=== PATIENT | female | born 1985 | race Caucasian/White ===

== ENCOUNTER 2024-04-10 01:30 | Emergency (ER) | payer MEDICAID ==
[~2024-04-10] VITALS: Ht 160 cm; Wt 62.6 kg
[2024-04-10 01:36] VITALS: BP 131/70; PULSE 102; RESP 16; TEMP 97.8; O2SAT 100
[2024-04-10 02:59] LABS: APPEARANCE,URINE CLEAR (CLEAR); BILIRUBIN,URINE NEGATIVE (NEGATIVE); BLOOD, URINE NEGATIVE (NEGATIVE); COLOR,URINE YELLOW (YELLOW); LEUKOCYTE ESTERASE ,URINE TRACE (NEGATIVE); NITRITE, URINE NEGATIVE (NEGATIVE); PROTEIN,URINE NEGATIVE (NEGATIVE); UGLUCOSE NEGATIVE (NEGATIVE); UROBILINOGEN,URINE 0.2 EU/dL (0.2 - 1)
[2024-04-10 03:16] LABS: RBC,URINE 0-5 /HPF (0-5)
[2024-04-10 03:17] LABS: BACTERIA,URINE 10-30 (MOD) /HPF (None Seen); MUCUS,URINE 1+ /LPF (None Seen); SQUAMOUS EPITHELIAL CELL,UR 0-3 (FEW) /LPF (0-3 (FEW))
[2024-04-10] MEDS: KETOROLAC 30 MG/ML VIAL IM ONE (03:17)
[2024-04-10] MEDS: PHENAZOPYRIDINE 100 MG TAB PO ONE (03:18)
[2024-04-10] MEDS ORDERED: PYR100 PO (03:36)
[2024-04-10] MEDS ORDERED: CEPH-588 PO (03:36)
[2024-04-10] MEDS ORDERED: LIDOCAINE MPF 1% 5 ML ONE (03:37)
[2024-04-10] MEDS ORDERED: cefTRIAXone 1,000 MG VIAL ONE (03:37)
[2024-04-10] MEDS: cefTRIAXone 1,000 MG in LIDOCAINE MPF 1% 2.1 ML IM ONE (03:42)
[2024-04-10 03:46] VITALS: BP 138/70; PULSE 96; RESP 16; TEMP 98; O2SAT 100
== END 2024-04-10 03:46 | disposition home or self-care (01) ==
LOC: MED 01:30
DX: N39.0 Urinary tract infection, site not specified (principal); Z79.899 Other long term (current) drug therapy
CPT/HCPCS: 81001; 81025; 87086; 96372; 99284; J0696; J1885; J2001